=== PATIENT | male | born 1995 | race Hispanic/Latino ===

== ENCOUNTER 2019-10-02 23:57 | Emergency (ER) | payer SELFPAY ==
[2019-10-03 01:17] VITALS: TEMP 97.2
[2019-10-03 04:23] VITALS: BP 125/98; O2SAT 98
== END 2019-10-03 04:12 | disposition home or self-care (01) ==
LOC: ER 23:57
PROC: 0JQM0ZZ Repair Left Upper Leg Subcutaneous Tissue and Fascia, Open Approach (ICD-10-PCS; principal; 2019-10-03)
DX: S81.802A Unspecified open wound, left lower leg, initial encounter (principal); W32.0XXA Accidental handgun discharge, initial encounter; Y93.89 Activity, other specified; Y92.9 Unspecified place or not applicable
CPT/HCPCS: 36415; 73706; 80048; 85025; 85610; 85730; 99284; Q9967